=== PATIENT | female | born 1995 | race Caucasian/White ===

== ENCOUNTER 2017-07-14 13:11 | Emergency (ER) | payer SELFPAY ==
[~2017-07-14] VITALS: Ht 162.6 cm; Wt 71.0 kg
[2017-07-14 13:51] VITALS: BP 158/70; PULSE 72; RESP 17; TEMP 98; O2SAT 100
[2017-07-14 15:38] LABS: BASOPHIL % 0.4 % (0.0-2.0); EOSINOPHIL % 0.2 % (0.0-4.0); HEMATOCRIT 38.3 % (35.0-46.0); HEMOGLOBIN 12.7 GM/DL (11.6-15.3); LYMPH % 17.9 % (9.0-44.0); LYMPHOCYTE # 1.2 TH/MM3 (1.0-4.8); MEAN CELL VOLUME 91.8 FL (80.0-100.0); MEAN CORPUSCULAR HEMOGLOBIN 30.5 PG (27.0-34.0); MEAN CORPUSCULAR HGB CONC 33.2 % (32.0-36.0); MEAN PLATELET VOLUME 10.5 FL (7.0-11.0); MONO % 9.3 % (0.0-8.0); MONOCYTE # 0.6 TH/MM3 (0-0.9); NEUT % 72.2 % (16.0-70.0); PLATELET COUNT 175 TH/MM3 (150-450); RED BLOOD COUNT 4.18 MIL/MM3 (4.00-5.30); RED CELL DISTRIBUTION WIDTH 12.9 % (11.6-17.2)
[2017-07-14] MEDS ORDERED: SODIUM CHLOR 0.9% 1000 ML INJ 1,000 ML IV ONE (15:44)
--- NOTE | 2017-07-14 15:51 | PD ---
HPI Chief Complaint: Related Problem Time Seen by Provider: 15:36 Travel History International Travel<30 days: No Contact w/Intl Traveler<30days: No Traveled to known affect area: No History of Present Illness HPI The patient is a 21-year-old female who presents to the emergency department for spotting and . The patient states last menstrual cycle was May 15, 2017. The patient was seen in [facility] emergency department several weeks ago where she had a positive beta-hCG, however, was too early to be detected via ultrasound. The patient denies any pain, however, developed some spotting earlier today. The patient describes a vaginal spotting is dark red to brown with mild discharge. She denies any abdominal pain or cramping. She denies any associated nausea or vomiting. She has not followed up with an stitching department supervisor. This is the patient's first . Symptoms are moderate. She denies any dysuria, frequency, or urgency. The patient does not know her blood type. PFS Past Medical History Medical History: Denies Significant Hx Diminished Hearing: No Medical other: Yes (HEART MURMUR) ?: LMP: 07/13 Past Surgical History Surgical History: No Previous Surgery Social History Alcohol Use: No Tobacco Use: No Substance Use: No Allergies-Medications (Allergen,Severity, Reaction): Coded Allergies: No Known Allergies (Unverified , 07/14/17) Reported Meds & Prescriptions Reported Meds & Active Scripts Active No Active Prescriptions or Reported Medications Review of Systems Except as stated in HPI: all other systems reviewed are Neg General / Constitutional: No: Fever Cardiovascular: No: Chest Pain or Discomfort Respiratory: No: Shortness of Breath Gastrointestinal: No: Nausea, Vomiting, Diarrhea, Abdominal Pain Genitourinary: Positive: Discharge, Vaginal Bleeding (Spotting), No: Urgency, Frequency, Dysuria, Hematuria, Pelvic Pain Physical Exam Narrative GENERAL: Awake, alert, very pleasant 21-year-old female who appears her stated age in no acute respiratory distress. SKIN: Focused skin assessment warm/dry. HEAD: Atraumatic. Normocephalic. EYES: No injection or drainage. ENT: No nasal bleeding or discharge. Mucous membranes pink and moist. NECK: Trachea midline. No JVD. GASTROINTESTINAL: Abdomen soft, non-tender, nondistended. No suprapubic tenderness. Back: No CVA tenderness. Pelvic: The exam was performed in the presence of a female nurse. External examination reveals no rashes or lesions. Speculum examination reveals a cervical loss is closed. Small amount of reddish/brown discharge on the infirmary for the vaginal vault. MUSCULOSKELETAL: No obvious deformities. No clubbing. No cyanosis. No edema. NEUROLOGICAL: Awake and alert. No obvious cranial nerve deficits. Motor grossly within normal limits. Normal speech. PSYCHIATRIC: Appropriate mood and affect; insight and judgment normal. Data Data Last Documented VS Vital Signs Date Time Temp Pulse Resp B/P (MAP) Pulse Ox O2 Delivery O2 Flow Rate FiO2 07/14/17 21:14 07/14/17 18:34 82 18 100 Room Air 07/14/17 13:51 98.0 Orders Orders Complete Blood Count With Diff (07/14/17 13:53) Comprehensive Metabolic Panel (07/14/17 13:53) Beta Hcg (Quant/Titer) (07/14/17 13:53) Gc And Chlamydia Pcr (07/14/17 15:44) Complete Rh (07/14/17 15:44) Us Pelvis (Ques Pr/Ect)W Trans (07/14/17 ) Wet Prep Profile (07/14/17 15:44) Urinalysis - C+S If Indicated (07/14/17 15:44) Sodium Chlor 0.9% 1000 Ml Inj (Ns 1000 M (07/14/17 15:44) Ed Urine Pregnancytest Poc (07/14/17 15:44) Ed Discharge Order (07/14/17 20:54) Labs Laboratory Tests Test 07/14/17 14:22 07/14/17 16:20 07/14/17 17:10 White Blood Count 7.0 TH/MM3 Red Blood Count 4.18 MIL/MM3 Hemoglobin 12.7 GM/DL Hematocrit 38.3 % Mean Corpuscular Volume 91.8 FL Mean Corpuscular Hemoglobin 30.5 PG Mean Corpuscular Hemoglobin Concent 33.2 % Red Cell Distribution Width 12.9 % Platelet Count 175 TH/MM3 Mean Platelet Volume 10.5 FL Neutrophils (%) (Auto) 72.2 % Lymphocytes (%) (Auto) 17.9 % Monocytes (%) (Auto) 9.3 % Eosinophils (%) (Auto) 0.2 % Basophils (%) (Auto) 0.4 % Neutrophils # (Auto) 5.0 TH/MM3 Lymphocytes # (Auto) 1.2 TH/MM3 Monocytes # (Auto) 0.6 TH/MM3 Eosinophils # (Auto) 0.0 TH/MM3 Basophils # (Auto) 0.0 TH/MM3 CBC Comment DIFF FINAL Differential Comment Blood Urea Nitrogen 8 MG/DL Creatinine 0.65 MG/DL Random Glucose 75 MG/DL Total Protein 7.6 GM/DL Albumin 3.6 GM/DL Calcium Level 8.4 MG/DL Alkaline Phosphatase 62 U/L Aspartate Amino Transf (AST/SGOT) 15 U/L Alanine Aminotransferase (ALT/SGPT) 22 U/L Total Bilirubin 0.3 MG/DL Sodium Level 137 MEQ/L Potassium Level 3.5 MEQ/L Chloride Level 104 MEQ/L Carbon Dioxide Level 26.9 MEQ/L Anion Gap 6 MEQ/L Estimat Glomerular Filtration Rate 115 ML/MIN Human Chorionic Gonadotropin, Quant 14163 MIU/ML Clue Cells (Wet Prep) NS Vaginal Trichomonas (Wet Prep) NS Vaginal Yeast (Wet Prep) NS Chlamydia trachomatis DNA (PCR) NOT DETECTED Neisseria gonorrhoeae DNA (PCR) NOT DETECTED Urine Color LIGHT-YELLOW Urine Turbidity CLEAR Urine pH 6.5 Urine Specific [place] 1.005 Urine Protein NEG mg/dL Urine Glucose (UA) NEG mg/dL Urine Ketones NEG mg/dL Urine Occult Blood TRACE Urine Nitrite NEG Urine Bilirubin NEG Urine Urobilinogen LESS THAN 2.0 MG/DL Urine Leukocyte Esterase NEG Urine RBC LESS THAN 1 /hpf Urine WBC LESS THAN 1 /hpf Urine Squamous Epithelial Cells 1 /hpf Microscopic Urinalysis Comment CULT NOT INDICATED MDM Medical Decision Making Medical Screen Exam Complete: Yes Emergency Medical Condition: Yes Medical Record Reviewed: Yes Interpretation(s) Last Impressions Pelvis Ultrasound 07/14/17 0000 Signed Impressions: Service Date/Time: Friday, July 14, 2017 17:25 - CONCLUSION: 1. Single viable intrauterine of 6 weeks 2 days by crown-rump length. Reagan Jimenez MD Laboratory Tests Test 07/14/17 14:22 07/14/17 16:20 07/14/17 17:10 White Blood Count 7.0 TH/MM3 Red Blood Count 4.18 MIL/MM3 Hemoglobin 12.7 GM/DL Hematocrit 38.3 % Mean Corpuscular Volume 91.8 FL Mean Corpuscular Hemoglobin 30.5 PG Mean Corpuscular Hemoglobin Concent 33.2 % Red Cell Distribution Width 12.9 % Platelet Count 175 TH/MM3 Mean Platelet Volume 10.5 FL Neutrophils (%) (Auto) 72.2 % Lymphocytes (%) (Auto) 17.9 % Monocytes (%) (Auto) 9.3 % Eosinophils (%) (Auto) 0.2 % Basophils (%) (Auto) 0.4 % Neutrophils # (Auto) 5.0 TH/MM3 Lymphocytes # (Auto) 1.2 TH/MM3 Monocytes # (Auto) 0.6 TH/MM3 Eosinophils # (Auto) 0.0 TH/MM3 Basophils # (Auto) 0.0 TH/MM3 CBC Comment DIFF FINAL Differential Comment Blood Urea Nitrogen 8 MG/DL Creatinine 0.65 MG/DL Random Glucose 75 MG/DL Total Protein 7.6 GM/DL Albumin 3.6 GM/DL Calcium Level 8.4 MG/DL Alkaline Phosphatase 62 U/L Aspartate Amino Transf (AST/SGOT) 15 U/L Alanine Aminotransferase (ALT/SGPT) 22 U/L Total Bilirubin 0.3 MG/DL Sodium Level 137 MEQ/L Potassium Level 3.5 MEQ/L Chloride Level 104 MEQ/L Carbon Dioxide Level 26.9 MEQ/L Anion Gap 6 MEQ/L Estimat Glomerular Filtration Rate 115 ML/MIN Human Chorionic Gonadotropin, Quant 72158 MIU/ML Clue Cells (Wet Prep) NS Vaginal Trichomonas (Wet Prep) NS Vaginal Yeast (Wet Prep) NS Chlamydia trachomatis DNA (PCR) NOT DETECTED Neisseria gonorrhoeae DNA (PCR) NOT DETECTED Urine Color LIGHT-YELLOW Urine Turbidity CLEAR Urine pH 6.5 Urine Specific [place] 1.005 Urine Protein NEG mg/dL Urine Glucose (UA) NEG mg/dL Urine Ketones NEG mg/dL Urine Occult Blood TRACE Urine Nitrite NEG Urine Bilirubin NEG Urine Urobilinogen LESS THAN 2.0 MG/DL Urine Leukocyte Esterase NEG Urine RBC LESS THAN 1 /hpf Urine WBC LESS THAN 1 /hpf Urine Squamous Epithelial Cells 1 /hpf Microscopic Urinalysis Comment CULT NOT INDICATED Differential Diagnosis Differential diagnosis includes ectopic , threatened AB, incomplete AB , inevitable AB, UTI, PID, normal . Narrative Course IV was established, labs were drawn and sent, and the patient was placed Re: Status was sent to lab. Bedside UA is obtained and formal quantitative beta- hCG was sent to lab. A pelvic exam was completed in the presence of a female nurse. The patient's blood type is A+, DrRenetta, no indication for RhoGam. Wet prep is negative. UA reveals a small amount of blood. Beta-hCG was 27,000. Diagnosis Primary Impression: Bleeding in early Additional Impression: Threatened Patient Instructions: General Instructions Additional Instructions: vitamin daily. Please provide the patient a copy of her ultrasound results and lab results at discharge. Repeat beta-hCG 40-72 hours. Followed up with an stitching department supervisor. Return if symptoms worsen or progress. Med/Other Pt SpecificInfo: No Change to Meds Scripts No Active Prescriptions or Reported Meds Disposition: 01 DISCHARGE HOME Condition: Stable Rory Parra MD Jul 14, 2017 15:51
[2017-07-14 16:10] LABS: ALBUMIN 3.6 GM/DL (3.4-5.0); AST (GOT) 15 U/L (15-37); BICARBONATE 26.9 MEQ/L (21.0-32.0); BLOOD UREA NITROGEN 8 MG/DL (7-18); CALCIUM 8.4 MG/DL (8.5-10.1); CHLORIDE 104 MEQ/L (98-107); CREATININE 0.65 MG/DL (0.50-1.00); GLOMERULAR FILTRATION RATE 115 ML/MIN (>89); GLUCOSE,RANDOM 75 MG/DL (74-106); SODIUM (NA) 137 MEQ/L (136-145)
[2017-07-14 16:28] LABS: ALKALINE PHOSPHATASE 62 U/L (45-117); ALT (GPT) 22 U/L (10-53); TOTAL BILIRUBIN ADULT 0.3 MG/DL (0.2-1.0); TOTAL PROTEIN 7.6 GM/DL (6.4-8.2)
[2017-07-14 17:34] LABS: BILIRUBIN, URINE NEG (NEG); BLOOD, URINE TRACE (NEG); GLUCOSE,URINE NEG (NEG); KETONE, URINE NEG (NEG); NITRITE,URINE NEG (NEG); PH, URINE 6.5 (5.0-8.5); SQUAMOUS EPITHELIAL CELL URINE 1 /hpf (0-5); URINE COLOR LIGHT-YELLOW (YELLW/STRAW); URINE LEUKOCYTE ESTERASE NEG (NEG)
[2017-07-14 18:34] VITALS: BP_SYST 121; BP_SYST 133; BP_DIAS 58; BP_DIAS 84; PULSE 82; PULSE 96; RESP 18; O2SAT 100
--- NOTE | 2017-07-14 19:19 | RADRPT ---
EXAM DATE/TIME: 07/14/2017 17:25 [facility] COMPARISON: No previous studies available for comparison. INDICATIONS : Discharge. Vaginal bleeding (spotting). LAB(S): Beta-hC MEDICAL HISTORY : Heart murmur SURGICAL HISTORY : None. ENCOUNTER: Initial ACUITY: 1 day PAIN SCORE: 0/10 LOCATION: Bilateral pelvis MEASUREMENTS: UTERUS: 8.4 x 5.9 x 6.7 cm ENDOMETRIAL STRIPE: >20 mm RIGHT OVARY: 3.2 x 1.8 x 2.0 cm LEFT OVARY: 3.4 x 1.5 x 1.9 cm FREE FLUID: No CROWN RUMP LENGTH: 0.51 cm = 6 WKS 2 DAYS FHR: 116 BPM FINDINGS: There is a viable intrauterine with heart rate 160 beats per minute. Gestational age is 6 weeks 2 days by crown-rump length. No free fluid. Positive yolk sac. Right ovary within normal l imits. Probable degenerating corpus luteum cyst in the left ovary. No free fluid in the cul-de-sac. CONCLUSION: 1. Single viable intrauterine of 6 weeks 2 days by crown-rump length. Reagan Jimenez MD on July 14, 2017 at 19:12 Board Certified Radiologist. This report was verified electronically.
== END 2017-07-14 21:19 | disposition home or self-care (01) ==
LOC: NEPE 13:11
DX: O20.0 Threatened abortion (principal); Z3A.01 Less than 8 weeks gestation of pregnancy
CPT/HCPCS: 76700; 76817; 80053; 81001; 84702; 84703; 85025; 86901; 87210; 87491; 87591; 96360; 96361; 99284; J7030